=== PATIENT | female | born 1955 | race Two or more races ===

== ENCOUNTER 2021-02-11 23:30 | Emergency (ER) | payer MEDICARE, MEDICAID ==
[~2021-02-11] VITALS: Ht 152.4 cm; Wt 81.6 kg
[2021-02-11] MEDS ORDERED: FLUORESCEIN SOD OPTH TEST STRIP LEFTEYE ONE (23:45)
[2021-02-11] MEDS ORDERED: TETRACAINE HCL 0.5% OPTH(EYE) SOLN 4ML LEFTEYE ONE (23:45)
[2021-02-12] MEDS ORDERED: ERYTHROMY OPTH OINT 5mg/gm 1gm or 3.5gm tube OP ONE (01:30)
[2021-02-12 05:13] VITALS: BP 128/58
== END 2021-02-12 09:18 | disposition left against medical advice (07) ==
LOC: ER 23:30
DX: S05.02XA Injury of conjunctiva and corneal abrasion without foreign body, left eye, initial encounter (principal); H54.7 Unspecified visual loss; X58.XXXA Exposure to other specified factors, initial encounter; Y93.89 Activity, other specified; Y92.89 Other specified places as the place of occurrence of the external cause; Y99.8 Other external cause status

== ENCOUNTER → 2023-09-15 | Outpatient (CLI) | payer OTHER, MEDICAID | END | disposition home or self-care (01) | LOC: XYW 13:38 | PROVIDERS: ATTEND Student in an Organized Health Care Education/Training Program | DX: I35.0 Nonrheumatic aortic (valve) stenosis (principal); R07.9 Chest pain, unspecified | CPT/HCPCS: 93306 ==

== ENCOUNTER → 2023-10-13 | Outpatient (CLI) | payer OTHER, MEDICAID ==
[~2023-10-13] VITALS: Ht 154.9 cm; Wt 80.7 kg
[2023-10-13] MEDS: ADENOSINE 68 MG in GIVE UN-DILUTED 0 ML IV ONE (12:04)
== END | disposition home or self-care (01) ==
LOC: XYW 08:42
PROVIDERS: ATTEND Student in an Organized Health Care Education/Training Program
DX: Z01.818 Encounter for other preprocedural examination (principal); I51.7 Cardiomegaly; R07.9 Chest pain, unspecified; E11.9 Type 2 diabetes mellitus without complications; I10 Essential (primary) hypertension; E78.5 Hyperlipidemia, unspecified; E66.9 Obesity, unspecified
CPT/HCPCS: 78452; 93017; A9500; J0153